=== PATIENT | female | born 1960 | race Native Hawaiian/Other Pacific Islander ===

== ENCOUNTER 2016-06-24 15:21 | Outpatient (CLI) | payer BC, OTHER | END 2016-06-24 19:08 | disposition home or self-care (01) | LOC: MRI 15:21 | DX: M54.12 Radiculopathy, cervical region (principal) ==

== ENCOUNTER 2019-10-27 10:42 | Outpatient (CLI) | payer BC, OTHER | END 2019-10-27 20:43 | disposition home or self-care (01) | LOC: RAD 10:42 | DX: J20.8 Acute bronchitis due to other specified organisms (principal) ==

== ENCOUNTER 2020-11-04 09:13 | Outpatient (CLI) | payer BC | END 2020-11-04 19:25 | disposition home or self-care (01) | LOC: MAMMO 09:13 | PROVIDERS: ATTEND Nurse Practitioner | DX: Z12.31 Encounter for screening mammogram for malignant neoplasm of breast (principal) ==

== ENCOUNTER 2021-02-06 08:45 | Outpatient (CLI) | payer BC, OTHER | END 2021-02-06 18:00 | disposition home or self-care (01) | LOC: INF 08:45 | PROVIDERS: ATTEND Internal Medicine Endocrinology, Diabetes & Metabolism | DX: Z23 Encounter for immunization (principal) ==

== ENCOUNTER 2021-04-08 07:58 | Outpatient (CLI) | payer BC | END 2021-04-08 19:23 | disposition home or self-care (01) | LOC: CT 07:58 | PROVIDERS: ATTEND Nurse Practitioner | DX: F95.9 Tic disorder, unspecified (principal) | CPT/HCPCS: 36415; 82565; 84520; Q9963 ==

== ENCOUNTER 2021-06-17 10:11 | Outpatient (CLI) | payer BC | END 2021-06-17 19:42 | disposition home or self-care (01) | LOC: RAD 10:11 | PROVIDERS: ATTEND Internal Medicine Rheumatology | DX: M25.59 Pain in other specified joint (principal); M50.322 Other cervical disc degeneration at C5-C6 level ==